=== PATIENT | male | born 1980 | race Caucasian/White ===

== ENCOUNTER → 2022-07-30 09:42 | Outpatient (CLI) | payer OTHER, SELFPAY ==
--- NOTE | ~2022-07-30 | US_ITS ---
EXAMINATION: US abdomen complete DATE: 07/30/2022 10:09 INDICATION: Elevated bilirubin TECHNIQUE: Multiple grayscale and Doppler ultrasound images of the abdomen were obtained. COMPARISON: None available FINDINGS: The head and body of the pancreas are normal. The pancreatic tail is obscured by bowel gas. The liver is normal with normal echogenicity and echotexture. No surface nodularity. Normal hepatope figueroa flow in the main portal vein. The gallbladder is normal with no abnormal wall thickening, pericho lecystic fluid or stones. The normal common bile duct measures 2 mm. There was no sonographic Barahona sign. The visualized portions of the aorta and inferior vena cava are normal. The right kidney measures 9.1 x 3.7 x 5.2 cm. The left kidney measures 9.6 x 5 x 5 cm. The kidneys de monstrate normal parenchymal echogenicity. There is no hydronephrosis. The spleen is normal in appear ance and measures 9.9 cm. IMPRESSION: 1. No sonographic correlate for the patient's symptoms. Reviewed, dictated and finalized at location A.
== END ==
PROVIDERS: PCP Emergency Medicine; Visit Provider Emergency Medicine
DX: E80.7 Disorder of bilirubin metabolism, unspecified (principal)
CPT/HCPCS: 76700

== ENCOUNTER 2022-10-01 01:26 | Day surgery (SDC) | payer OTHER, SELFPAY ==
[2022-09-18 15:22] VITALS: BMI 22.0
--- NOTE | 2022-09-18 15:25 | PC.NURSE ---
Report to the Outpatient Waiting Room, entrance under the green pavilion located off [facility], at time 1000 on date 10/01/22. Planned Procedure Time: 1200. Time changes happen often and if your time is changed the preop area will call you the afternoon before. - You and your visitor will be asked to self-screen and do not enter if you have any COVID symptoms. - Only one visitor is requested with a max of two and NO children visitors are allowed at this time. - The patient visitor may be requested to leave or wait in car when not with patient due to distancing restrictions. - A mask is optional within the hospital. Patients may have clear liquids (water, carbonated beverages, clear teas, apple juice) until 3 hours prior to surgery with a maximum of 20 ounces. - No food from midnight until time of surgery Take the following medications with a SIP of water the morning of surgery: N/A Medications to discontinue per physician: N/A Date to take last dose: N/A Please no make-up, nail german, hairspray, perfume, deodorant, or body powder the day of surgery. No jewelry (including any body piercings) or valuables the day of surgery, leave them at home. Please take a shower or bath the night before, or the morning of, surgery with an antibacterial soap (HIBICLENS). Wear comfortable, loose fitting clothing. - Jewelry must be removed prior to entering the operating room. Rings and piercings that are not removed may be cut off. - The hospital will not accept responsibility for valuables. - Please leave all valuables, including medications, at home the day of surgery. If you are going home after surgery, a licensed mail truck driver must drive you home. - NO public transportation without another adult if you receive anesthesia. - We recommend that an adult stay with you for 24 hours following discharge. - We also recommend that you do not drive, make important decision, drink alcoholic beverages, or take any drugs that were not prescribed by your health care provider for at least 24 hours after your discharge time. Follow any additional instructions given to you from your surgeon. If you or anyone in your household have experienced Covid symptoms in the past week, please notify your surgeon or the nurse liaison at the phone number below for possible testing. Telephone instructions given to PT - LETTY ARAMBULA and asked if any additional questions and then verbalized understanding. Patient advised to call surgeon office or pre surgery nurse liaison [phone] if any additional questions.
--- NOTE | 2022-09-30 17:50 | PM.SD2 ---
Same Day Admit/Disch: HPI History of Present Illness Chief complaint: bilateral inguinal hernias Narrative: Delio Noble is a 42 year old male Who has had a left groin bulge for a few years. This is uncomfortable when he is active. He has pain occasionally at other times as well. He was seen in the office and found to have not only a left inguinal hernia but also a smaller right inguinal hernia. He is taken to surgery now for bilateral inguinal hernia repair under anesthesia. FORMERLY [facility], [facility] Family History Family History Father Cancer Hypertension Mother Hypertension Social History Social History Smoking status: Never smoker Alcohol intake: never Substance use: never Substance use type: does not use Living arrangements: with family Additional occupation/education comments: Healthcare IT Spiritual care concerns: No Same Day Admit/Disch: Med Pre-admit Medications Home Medications Medication Instructions Recorded Confirmed Type ketorolac 10 mg tablet 10 mg PO Q6H 4 days #16 tabs 10/01/22 Rx oxycodone-acetaminophen 5 mg-325 1 - 2 tablet PO Q6H PRN pain #10 10/01/22 Rx mg tablet (Percocet) tabs Exam Const: General: comfortable, no acute distress, alert and awake HENMT: Head: normocephalic and atraumatic Mouth: Yes Normal oral and palatal mucosa present Eyes: Conjunctivae: conjunctivae normal Pupils: Equal, round and reactive pupils present EOM: EOMs intact bilaterally Neck: Neck: normal visual inspection, no lymphadenopathy and nontender Resp: Effort & Inspection: normal respiratory effort Auscultation: clear to auscultation bilaterally Cardio: Rate: regular rate Rhythm: regular rhythm Heart sounds: no gallops, no murmurs and no rubs GI: Inspection: non-distended GI Palp: Yes Soft to palpation, No Tenderness to palpation present (GI), No Hepatomegaly present and No Splenomegaly present : Male General Exam: Yes hernia ( Bilateral inguinal, reducible) Penis: Yes normal penis Scrotum: scrotum normal Testes: Testes normal Skin: Lesions: no lesions Rashes: no rashes Neuro: General: no focal motor deficits and CN's II-XI intact bilaterally Cranial nerves: Yes Equal, round and reactive pupils present, Yes Bilaterally intact EOM present, Yes facial symmetry and Yes Midline tongue present Speech: normal speech Motor exam (neuro): 5/5 motor strength present throughout and Motor abnormalities not present Extrem: General: no clubbing, cyanosis or edema and edema Psych: Affect: normal affect Thought process: Normal thought process present Insight: Good insight present (Psych) DS: Summary Time Spent with Patient Time attestation: Total time spent providing and/or coordinating discharge services: DS: Admitting Diagnosis Discharge Date 10/01/2022 Admitting Diagnosis bilateral inguinal hernias, left larger than the right. Patient is taken to surgery now for bilateral inguinal hernia repair under anesthesia. The procedure, the risks, benefits, have been discussed. The use of mesh for hernia repair was discussed. All questions were answered. He understands and agrees to go ahead. DS: Discharge Diagnosis Discharge Diagnosis (1) Bilateral inguinal hernia without obstruction or gangrene: Code(s): K40.20 - Bilateral inguinal hernia, without obstruction or gangrene, not specified as recurrent Status: Chronic Assessment and Plan: Bilateral inguinal hernia repair with PerFix Light plug and patch 10/01/[address] Flores Discharge Plan Discharge Patient Disposition: Home, Self-Care Discharge Instructions: 1. May shower the day after surgery over incisions. 2. Call office for: -Wound increasingly painful or bleeding -Vomiting -Fever of greater than 101 degrees 3. Expect some blood on dressing or on skin. 4. If no bowel movement for three days, ta
[2022-10-01] VITALS (8 sets, daily range): BP systolic 101–127; BP diastolic 64–87; PULSE 56–87; RESP 13–20; TEMP 36.2–36.9; O2SAT 100; BMI 22.5
[2022-10-01] MEDS: LACTATED RINGERS 1,000 ML 30 ML IV CONT ×2 (10:30→14:56)
[2022-10-01] MEDS: ACETAMINOPHEN 500 MG TABLET 1000 MG PO (10:35)
[2022-10-01] MEDS: KETOROLAC 15 MG/ML VIAL (*BKC) IV PUSH (10:35)
--- NOTE | 2022-10-01 11:20 | P.PNAN_ITS ---
Anes - Initial Pre Proc Eval Procedure: Operation Date: 10/01/22 12:00 Proposed Procedures p Bilateral Inguinal Hernia Repair with Mesh - Waylon Flores MD Date/Time: 10/01/22 11:20 Surgeon: Waylon Flores MD Pre Op Diagnosis: bilateral inguinal hernias Patient Data Age: 42 Gender: M Height: 1.73 m Weight: 67.25 kg Last Vital Signs Temp 36.9 C 10/01/22 10:00 Pulse 87 10/01/22 10:00 Resp 14 10/01/22 10:00 BP 127/79 10/01/22 10:00 Pulse Ox 100 10/01/22 10:00 O2 Del Method Room Air 10/01/22 10:00 Allergies Allergy/AdvReac Type Severity Reaction Status Date / Time No Known Allergies Allergy Verified 10/01/22 10:16 Home Medications Medication Instructions Recorded Confirmed Type No Home Medications 09/18/22 09/18/22 History Patient hx anesthesia problems: none Family hx anesthesia problems: none Results Review: All pre-operative results and documents have been reviewed as part of the pre-op erative evaluation. FORMERLY [facility] Family History Family History Father Cancer Hypertension Mother Hypertension Social History Social History Smoking status: Never smoker Alcohol intake: never Substance use: never Substance use type: does not use Living arrangements: with family Additional occupation/education comments: Healthcare IT Spiritual care concerns: No Anes - Eval Final PreProcedure Day of Procedure 10/01/22 11:20 Patient weight: normal Heart: regular rate and rhythm Lungs: clear to auscultation Airway: Mallampati scale class 1 Neurological: alert and oriented Last oral intake: >/= 8 hours ASA classification: I Emergent: no Anesthetic plan: proceed Anesthesia type and monitoring: general GIVS and standard monitoring Results Review: All pre-operative results and documents have been reviewed as part of the pre- operative evaluation. Informed Consent: The patient's anesthetic plan and its attendant risks and benefits were discussed with the patient/family/POA. Questions were solicited and answers provided to the satisfaction of the patient/family/POA.
--- NOTE | 2022-10-01 12:05 | SUR.PREOP ---
1205- Notified patient procedure start time will be delayed. Patient denies needs at this.
--- NOTE | 2022-10-01 12:19 | WPDHPUPDATE1 ---
History and Physical Update Update Date/Time: 10/01/22 12:19 History and Physical has been reviewed, including an updated exam of the patient. There are NO changes in the patient's condition. Risks, benefits, and alternatives have been discussed and questions answered. Patient agrees to proceed with procedure.
[2022-10-01] MEDS: ceFAZolin 2 GM/D5W 50 ML 2 GM/50 ML BAG IVPB (12:34)
[2022-10-01] MEDS: BUPIVACAINE HCL 0.5% PF 30 ML VIAL INFILTRATE (13:56)
--- NOTE | 2022-10-01 15:14 | W.PM.PROC2 ---
Procedure Note - Detailed Date of Procedure 10/01/22 Pre-op Diagnosis bilateral inguinal hernias Post-op Diagnosis Same Procedure Performed Bilateral inguinal hernia repair with PerFix Light plug and patch Surgeon Waylon Flores MD [employer] Anesthesia General (G IV S), Local (2% lidocaine with epinephrine) and Other (Xaracoll) Indications Patient had noticed a left groin bulge for quite some time. It had been starting to bother him and it gotten larger. He was seen in the office and examination showed not only a left inguinal hernia but also a right inguinal hernia. He is taken to surgery now for bilateral inguinal hernia repair. Findings Patient had an indirect right inguinal hernia but a weakened area with bulge in the direct space as well. He had a large direct hernia in the left groin. Description of Procedure Patient was taken to surgery and anesthesia was introduced. Both groins and genitalia were prepped and draped. We started on the patient's right side. A right inguinal incision was drawn on the patient's skin. A mirror image left inguinal incision was drawn on the left side. We infiltrated local into the skin and subcutaneous on the right. I also infiltrated local into the skin and subcutaneous on the left at the same time. Incision was made in the right inguinal region. We dissected through the subcutaneous. Crossing veins were cauterized and divided. We dissected through Charly's fascia and down to the external oblique aponeurosis. The aponeurosis was exposed as was the external ring. Additional local was infiltrated deep to the aponeurosis in the area of the inguinal canal. The aponeurosis was opened laterally and extended medially through the external ring. The leaves of the aponeurosis were carefully dissected free from the spermatic cord. The ilioinguinal nerve was left attached to the cord and uninjured throughout the surgery. The cord was mobilized medially on a [place] drain. I dissected back to the internal ring further mobilized in the cord. No hernia sac was evident. I then dissected in the anteromedial aspect of the spermatic cord. Hernia sac was found. It was good-sized but very thin. It was thoroughly in 20 and with the spermatic cord structures. It was carefully dissected free from the spermatic cord and then dissected back to the internal ring. I had to excise some of the cremasteric fibers to expose the internal ring. I dissected the hernia sac back to a high dissection. I dunked it into the retroperitoneum. It was noted at this point that there was a bulge in the lateral aspect of the direct space just on the other side of the inferior epigastric vessels. I did some additional dissection around the inferior epigastric vessels and eventually found that this was an indirect hernia but it also involved the cephalad and lateral aspect of the direct space. I mobilized the inferior epigastric vessels and then divided some of the transversalis fascia over the bulge in the direct space. This created essentially 1 hernia defect. I chose a large PerFix Light plug. I placed the plug in the defect and placed the inferior epigastric vessels over the plug. I then sutured the edges of the plug to the transversalis fascia. The cephalad aspect of the plug was sutured to the reflection of the inguinal ligament. Still being somewhat concerned that this hernia may recur, I used some 0 Ethibond suture and sutured transversalis fascia to the reflection of the inguinal ligament nearly covering the plug from medial to lateral. The see much more secure. I then cut the patch to the appropriate size. It was placed over the inguinal canal floor. The lateral leaves were passed beyond the cord. The 1st piece of Xaracoll was then placed over the patch. The spermatic cord was then placed over the Xaracoll with the ileoinguinal nerve attached. The external oblique aponeurosis was closed with interrupted 3-0 Vicryl sut
== END 2022-10-01 17:30 | disposition home or self-care (01) ==
PROVIDERS: PCP Emergency Medicine; Visit Provider Surgery
PROC: (CPT 49505; principal; 2022-10-01 12:00)
DX: K40.20 Bilateral inguinal hernia, without obstruction or gangrene, not specified as recurrent (principal); Z79.891 Long term (current) use of opiate analgesic; Z79.899 Other long term (current) drug therapy
CPT/HCPCS: 49505; A9270; C1781; J0690; J1885; J2250; J2704; J3010; J7120